=== PATIENT | female | born 1990 | race African-American/Black ===

== ENCOUNTER 2018-10-05 16:47 | Emergency (ER) | payer OTHER ==
[2018-10-05 16:52] VITALS: TEMP 99.1; BMI 25.1
--- NOTE | 2018-10-05 16:53 | PDOC ---
History of Present Illness - General Chief Complaint: Vomiting/Diarrhea Stated Complaint: PREG COMPLICATION Time Seen by Provider: 10/05/18 16:53 - History of Present Illness Initial Comments: 27 currently 5 months (LMP 05/23/18) with PMH of anemia presenting with multiple complaints. Patient called EMS because of subjective fever and headache. Per EMS, patient syncopized while they were on scene. Patient also reports a syncopal episode yesterday, but has never syncopized before then. She believes her hydration status has been poor. Patient reports vaginal spotting since last Saturday as well as "poquito" abdominal pain. Patient reports chest pain, shortness of breath, and cough productive of green/yellow sputum that started yesterday. She had taken tylenol at 9am and 2pm today. Patient recently travelled from [facility] to the [facility] (3hour 45 min flight on September 05). No hemoptysis, no recent surgical history, no recent immobilization, no history of DVT or PE. Patient also reports dysuria and chills. Of Note: Patient reported history of a blood clot in her lungs and stated she was treated at [facility] in April 2018. When asked what anticoagulant therapy she was on, she looked at me quizzically and denied being on blood thinner treatment. She currently takes aspirin. I called [facility]. [phone]: Spoke with one of the residents in the emergency department. This patient was seen at [facility] in April 2018. She did have an elevated D-Dimer ( 725) but no CT was performed during that visit. In her discharge instructions, patient was told that PE/DVT was extremely unlikely. Was given a diagnosis of acute influenza. This being the case, I have low suspicion that patient actually had a pulmonary embolus. PCP: Dr. Grover (affiliated with [facility]) Past History - Past Medical History Allergies/Adverse Reactions: Allergies Allergy/AdvReac Type Severity Reaction Status Date / Time No Known Allergies Allergy Verified 10/05/18 16:51 Home Medications: Ambulatory Orders NK [No Known Home Medication] 10/05/18 COPD: No - Suicide/Smoking/Psychosocial Hx Smoking History: Never smoked Have you smoked in the past 12 months: No Information on smoking cessation initiated: No Hx Alcohol Use: No Drug/Substance Use Hx: No Review of Systems - Review of Systems Comments:: Constitutional: +fever, +chills HEENT: no vision changes, no dysphagia Cardiovascular: +chest pain, no palpitations Respiratory: +cough, +shortness of breath Gastrointestinal: +abdominal pain, no constipation Genitourinary: +dysuria, no frequency Musculoskeletal: no myalgia, no arthralgia Skin: no rash, no itching Neurologic: +headache, no weakness *Physical Exam - Vital Signs Last Vital Signs Temp Pulse Resp BP Pulse Ox 99.1 F 89 18 107/60 97 10/05/18 16:49 10/05/18 16:49 10/05/18 16:49 10/05/18 16:49 10/05/18 16:49 - Physical Exam Comments: General: Awake, alert, and fully oriented, in no acute distress Head: No signs of trauma Eyes: EOMI, sclera anicteric ENT: Moist mucus membranes Neck: Normal ROM, supple Lungs: Lungs clear, Normal breath sounds Cardio: Regular rhythm, S1 and S2 present Abdomen: Gravid abdomen. Nontender. No guarding, no rebound. Extremities: Normal range of motion, Distal pulses present. No calf tenderness SKIN: Warm, Dry, normal turgor Neurologic: Cranial nerves II through XII grossly intact. Normal speech ED Treatment Course - LABORATORY CBC & Chemistry Diagram: 10/05/18 17:15 10/05/18 17:15 Medical Decision Making - Medical Decision Making 27 currently 5 months (LMP 05/23/18) with PMH of anemia presenting with multiple complaints. DDX including but not limited to vasovagal syncope, cardiogenic syncope, metabolic syncope, neurogenic syncope, postural syncope, intoxication, seizure, preeclampsia, threatened , ACS Labs, EKG 1L NS Ultrasound, and bilateral duplex EKG: rate 85, QTc 433, NSR 10/05/18 16:55 Patient reported history of a blood clot in her lungs and stated she was treated at [facility] in April 2018. Call to [facility]. : Spoke with one of the residents in the emergency department. This patient was seen at [facility] in April 2018. She did have an elevated D-Dimer (725) but no CT was performed during that visit. In her discharge instructions, patient was told that PE/DVT was extremely unlikely. Given a diagnosis of acute influenza. Lowered suspicion for PE given patient likely does not have history of blood clot. Preeclampsia less likely as patient is only 19 weeks. Though dates may be mis- reported. 10/05/18 17:54 CBC WBC 5.6 K/mm3 (4.0-10.0) 10/05/18 17:15 RBC 3.20 M/mm3 (3.60-5.2) L 10/05/18 17:15 Hgb 10.5 GM/dL (10.7-15.3) L 10/05/18 17:15 Hct 31.1 % (32.4-45.2) L 10/05/18 17:15 MCV 97.2 fl (80-96) H 10/05/18 17:15 MCH 32.9 pg (25.7-33.7) 10/05/18 17:15 MCHC 33.8 g/dl (32.0-36.0) 10/05/18 17:15 RDW 13.3 % (11.6-15.6) 10/05/18 17:15 Plt Count 247 K/MM3 (134-434) 10/05/18 17:15 MPV 8.4 fl (7.5-11.1) 10/05/18 17:15 Absolute Neuts (auto) 4.2 K/mm3 (1.5-8.0) 10/05/18 17:15 Neutrophils % 74.7 % (42.8-82.8) 10/05/18 17:15 Lymphocytes % 13.0 % (8-40) 10/05/18 17:15 Monocytes % 10.0 % (3.8-10.2) 10/05/18 17:15 Eosinophils % 1.7 % (0-4.5) 10/05/18 17:15 Basophils % 0.6 % (0-2.0) 10/05/18 17:15 Nucleated RBC % 0 % (0-0) 10/05/18 17:15 No leukocytosis Slight anemia D-dimer 1494 elevated 10/05/18 18:10 CMP Sodium 138 mmol/L (136-145) 10/05/18 17:15 Potassium 4.0 mmol/L (3.5-5.1) 10/05/18 17:15 Chloride 104 mmol/L (98-107) 10/05/18 17:15 Carbon Dioxide 26 mmol/L (21-32) 10/05/18 17:15 Anion Gap 9 MMOL/L (8-16) 10/05/18 17:15 BUN 6 mg/dL (7-18) L 10/05/18 17:15 Creatinine 0.6 mg/dL (0.55-1.3) 10/05/18 17:15 Est GFR (CKD-EPI)AfAm 142.76 10/05/18 17:15 Est GFR (CKD-EPI)NonAf 123.17 10/05/18 17:15 Random Glucose 92 mg/dL (74-106) 10/05/18 17:15 Calcium 8.8 mg/dL (8.5-10.1) 10/05/18 17:15 Magnesium 2.2 mg/dL (1.8-2.4) 10/05/18 17:15 Total Bilirubin 0.3 mg/dL (0.2-1) 10/05/18 17:15 AST 12 U/L (15-37) L 10/05/18 17:15 ALT 15 U/L (13-61) 10/05/18 17:15 Alkaline Phosphatase 53 U/L (45-117) 10/05/18 17:15 Troponin I < 0.02 ng/ml (0.00-0.05) 10/05/18 17:15 Total Protein 6.5 g/dl (6.4-8.2) 10/05/18 17:15 Albumin 3.2 g/dl (3.4-5.0) L 10/05/18 17:15 Beta HCG, Quant 82334.2 mIU/ml 10/05/18 17:15 Electrolytes unremarkable Tpn undetectable Low suspicion for ACS given normal EKG and nondetectable tpn 10/05/18 18:36 Patient signed out to Dr. Camejo Pending ultrasound reports 10/05/18 19:04 *DC/Admit/Observation/Transfer Diagnosis at time of Disposition: Syncope Qualifiers: Syncope type: unspecified Qualified Code(s): R55 - Syncope and collapse - Referrals - Patient Instructions Printed Discharge Instructions: DI for Syncope in Adults (Fainting) Additional Instructions: You came into the ED for fainting, chest pain, abdominal pain, and shortness of breath. Your labs and EKG were within normal limits. Make sure you keep yourself hydrated. Drink plenty of water. You can take tylenol for pain. Follow the instructions on the medication bottle. Follow-up with your primary care doctor/ bonding molder this week to discuss this ED visit and to further evaluate your symptoms. Call and make an appointment. Your workup is not complete until you do so. Immediate medical attention is required if: you pass out, have any chest pain, palpitations, shortness of breath, severe headaches, changes in vision, focal numbness or weakness, any severe abdominal pain, any black tarry stool, or any new or concerning symptoms. If you think you are having an emergency, call for emergency medical services or present to the emergency department right away. - Post Discharge Activity
[2018-10-05] MEDS ORDERED: SODIUM CHLORIDE 1,000 ML IV STA (17:14)
[2018-10-05 17:35] LABS: BASO % 0.6 % (0-2.0); EOS % 1.7 % (0-4.5); HEMATOCRIT 31.1 % (32.4-45.2); HEMOGLOBIN 10.5 GM/dL (10.7-15.3); MCH 32.9 pg (25.7-33.7); MCHC 33.8 g/dl (32.0-36.0); MEAN CELL VOLUME 97.2 fl (80-96); MEAN PLT VOLUME 8.4 fl (7.5-11.1); NEUT % 74.7 % (42.8-82.8); PLATELET COUNT 247 K/MM3 (134-434); RDW 13.3 % (11.6-15.6); WHITE BLOOD COUNT 5.6 K/mm3 (4.0-10.0)
[2018-10-05 17:53] LABS: INR 1.08 (0.83-1.09); PROTHROMBIN TIME (PATIENT) 12.7 SEC (9.7-13.0)
[2018-10-05 17:56] LABS: ACTIVATED PTT 29.4 SECONDS (25.2-36.5)
[2018-10-05 18:28] LABS: ALBUMIN 3.2 g/dl (3.4-5.0); ALK PHOS 53 U/L (45-117); ANION GAP 9 MMOL/L (8-16); BILIRUBIN,TOTAL 0.3 mg/dL (0.2-1); BLOOD UREA NITROGEN 6 mg/dL (7-18); CALCIUM 8.8 mg/dL (8.5-10.1); CHLORIDE 104 mmol/L (98-107); CO2 26 mmol/L (21-32); CREATININE 0.6 mg/dL (0.55-1.3); GLUCOSE,RANDOM 92 mg/dL (74-106); MAGNESIUM 2.2 mg/dL (1.8-2.4); SGOT/AST 12 U/L (15-37); SGPT/ALT 15 U/L (13-61); SODIUM 138 mmol/L (136-145); TOT PROT 6.5 g/dl (6.4-8.2)
--- NOTE | 2018-10-05 19:11 | PDOC ---
*Physical Exam - Vital Signs Last Vital Signs Temp Pulse Resp BP Pulse Ox 99.1 F 85 15 101/65 99 10/05/18 16:49 10/05/18 18:11 10/05/18 18:11 10/05/18 18:11 10/05/18 18:11 ED Treatment Course - LABORATORY CBC & Chemistry Diagram: 10/05/18 17:15 10/05/18 17:15 - ADDITIONAL ORDERS Additional order review: Laboratory Results 10/05/18 10/05/18 10/05/18 17:15 17:15 17:15 PT with INR 12.70 INR 1.08 PTT (Actin FS) 29.4 D-Dimer Sodium 138 Potassium 4.0 Chloride 104 Carbon Dioxide 26 Anion Gap 9 BUN 6 L Creatinine 0.6 Est GFR (CKD-EPI)AfAm 142.76 Est GFR (CKD-EPI)NonAf 123.17 Random Glucose 92 Calcium 8.8 Magnesium 2.2 Total Bilirubin 0.3 AST 12 L ALT 15 Alkaline Phosphatase 53 Troponin I < 0.02 Total Protein 6.5 Albumin 3.2 L Beta HCG, Quant 79658.2 Blood Type O POSITIVE Antibody Screen Negative 10/05/18 15:20 PT with INR INR PTT (Actin FS) D-Dimer 1494 H Sodium Potassium Chloride Carbon Dioxide Anion Gap BUN Creatinine Est GFR (CKD-EPI)AfAm Est GFR (CKD-EPI)NonAf Random Glucose Calcium Magnesium Total Bilirubin AST ALT Alkaline Phosphatase Troponin I Total Protein Albumin Beta HCG, Quant Blood Type Antibody Screen 10/05/18 17:15 RBC 3.20 L MCV 97.2 H MCHC 33.8 RDW 13.3 MPV 8.4 Neutrophils % 74.7 Lymphocytes % 13.0 Monocytes % 10.0 Eosinophils % 1.7 Basophils % 0.6 - Medications Given in the ED: ED Medications Discontinued Medications Generic Name Dose Route Start Last Admin Trade Name Freq PRN Reason Stop Dose Admin Sodium Chloride 1,000 mls @ 1,000 mls/hr 10/05/18 17:14 10/05/18 17:56 Normal Saline - IV 10/05/18 18:13 1,000 mls/hr ASDIR STA Administration Medical Decision Making - Medical Decision Making 10/05/18 19:11 Pt signed out to me by Dr. Briggs. See prior note. 27 year old female 5 months with PMH anemia presented to ED for multiple complaints, including subjective fever, headache, syncope, abdominal pain, vaginal spotting, chest pain, shortness of breath, productive yellow/ green cough. Pt reported feeling dehydrated. Initial Vital Signs Temp Pulse Resp BP Pulse Ox 99.1 F 89 18 107/60 97 10/05/18 16:49 10/05/18 16:49 10/05/18 16:49 10/05/18 16:49 10/05/18 16:49 Afebrile. No tachycardia. No tachypnea. Normal BP for . No hypoxia on room air. EKG performed at 1649: rate 85, regular rhythm, normal axis, normal intervals, no acute ST changes. CBC WBC 5.6 K/mm3 (4.0-10.0) 10/05/18 17:15 RBC 3.20 M/mm3 (3.60-5.2) L 10/05/18 17:15 Hgb 10.5 GM/dL (10.7-15.3) L 10/05/18 17:15 Hct 31.1 % (32.4-45.2) L 10/05/18 17:15 MCV 97.2 fl (80-96) H 10/05/18 17:15 MCH 32.9 pg (25.7-33.7) 10/05/18 17:15 MCHC 33.8 g/dl (32.0-36.0) 10/05/18 17:15 RDW 13.3 % (11.6-15.6) 10/05/18 17:15 Plt Count 247 K/MM3 (134-434) 10/05/18 17:15 MPV 8.4 fl (7.5-11.1) 10/05/18 17:15 Absolute Neuts (auto) 4.2 K/mm3 (1.5-8.0) 10/05/18 17:15 Neutrophils % 74.7 % (42.8-82.8) 10/05/18 17:15 Lymphocytes % 13.0 % (8-40) 10/05/18 17:15 Monocytes % 10.0 % (3.8-10.2) 10/05/18 17:15 Eosinophils % 1.7 % (0-4.5) 10/05/18 17:15 Basophils % 0.6 % (0-2.0) 10/05/18 17:15 Nucleated RBC % 0 % (0-0) 10/05/18 17:15 No leukocytosis. No anemia. CMP Sodium 138 mmol/L (136-145) 10/05/18 17:15 Potassium 4.0 mmol/L (3.5-5.1) 10/05/18 17:15 Chloride 104 mmol/L (98-107) 10/05/18 17:15 Carbon Dioxide 26 mmol/L (21-32) 10/05/18 17:15 Anion Gap 9 MMOL/L (8-16) 10/05/18 17:15 BUN 6 mg/dL (7-18) L 10/05/18 17:15 Creatinine 0.6 mg/dL (0.55-1.3) 10/05/18 17:15 Est GFR (CKD-EPI)AfAm 142.76 10/05/18 17:15 Est GFR (CKD-EPI)NonAf 123.17 10/05/18 17:15 Random Glucose 92 mg/dL (74-106) 10/05/18 17:15 Calcium 8.8 mg/dL (8.5-10.1) 10/05/18 17:15 Magnesium 2.2 mg/dL (1.8-2.4) 10/05/18 17:15 Total Bilirubin 0.3 mg/dL (0.2-1) 10/05/18 17:15 AST 12 U/L (15-37) L 10/05/18 17:15 ALT 15 U/L (13-61) 10/05/18 17:15 Alkaline Phosphatase 53 U/L (45-117) 10/05/18 17:15 Troponin I < 0.02 ng/ml (0.00-0.05) 10/05/18 17:15 Total Protein 6.5 g/dl (6.4-8.2) 10/05/18 17:15 Albumin 3.2 g/dl (3.4-5.0) L 10/05/18 17:15 Beta HCG, Quant 88067.2 mIU/ml 10/05/18 17:15 No electrolyte abnormalities. No GIANNA. No transaminitis. 10/05/18 19:17 Pending pelvic US report, UA. 10/05/18 20:11 Urine Test Results Urine Color Yellow 10/05/18 19:45 Urine Appearance Clear 10/05/18 19:45 Urine pH 7.5 (5.0-8.0) 10/05/18 19:45 Ur Specific Raysal 1.004 (1.010-1.035) L 10/05/18 19:45 Urine Protein Negative (NEGATIVE) 10/05/18 19:45 Urine Glucose (UA) Negative (NEGATIVE) 10/05/18 19:45 Urine Ketones Negative (NEGATIVE) 10/05/18 19:45 Urine Blood Negative (NEGATIVE) 10/05/18 19:45 Urine Nitrite Negative (NEGATIVE) 10/05/18 19:45 Urine Bilirubin Negative (NEGATIVE) 10/05/18 19:45 Ur Leukocyte Esterase Negative (NEGATIVE) 10/05/18 19:45 Negative for UTI. No proteinuria. 10/05/18 20:37 TVUS report: impression: 1. Single live intrauterine in cephalic presentation at 19 weeks 2 days ?1 week 2 days estimated gestational age. SANDY based on ultrasound February 27, 2019; consistent with clinical dating. 2. Posterior placenta, not low lying. 3. Estimated weight 280.87 g ?42.13 g. EFW-GP 41.9%. Pt discharged. *DC/Admit/Observation/Transfer Diagnosis at time of Disposition: Syncope Qualifiers: Syncope type: unspecified Qualified Code(s): R55 - Syncope and collapse - Discharge Dispostion Disposition: HOME Condition at time of disposition: Stable Decision to Admit order: No - Referrals - Patient Instructions Printed Discharge Instructions: DI for Syncope in Adults (Fainting) Additional Instructions: You came into the ED for fainting, chest pain, abdominal pain, and shortness of breath. Your labs and EKG were within normal limits. Make sure you keep yourself hydrated. Drink plenty of water. You can take tylenol for pain. Follow the instructions on the medication bottle. Follow-up with your primary care doctor/ light fixture servicer this week to discuss this ED visit and to further evaluate your symptoms. Call and make an appointment. Your workup is not complete until you do so. Your ultrasound was normal. Immediate medical attention is required if: you pass out, have any chest pain, palpitations, shortness of breath, severe headaches, changes in vision, focal numbness or weakness, any severe abdominal pain, any black tarry stool, or any new or concerning symptoms. If you think you are having an emergency, call for emergency medical services or present to the emergency department right away. ----- Entr en el servicio de urgencias por desmayos, dolor de pecho, dolor abdominal y dificultad para respirar. Sonja laboratorios y EKG estaban dentro de los lmites normales. Asegrate de mantenerte hidratado. Beber abundante agua. Puedes angel tylenol para el dolor. Siga las instrucciones en el envase del medicamento. Christine un seguimiento con lawrence mdico de cabecera / obstetra esta semana para hablar sobre esta visita al ED y evaluar sonja sntomas. Llame y christine garcia khang. Lawrence preparacin no est completa hasta que lo christine. Lawrence ultrasonido fue normal. Se requiere atencin mdica inmediata si: se desmaya, tiene dolor en el pecho, palpitaciones, dificultad para respirar, uzma de jolene severos, cambios en la visin, entumecimiento o debilidad focal, dolor abdominal intenso, heces de color jahaira o cualquier sntoma nuevo o relacionado. . Si terry que tiene garcia emergencia, llame para solicitar servicios mdicos de emergencia o presente al departamento de emergencias de inmediato. - Post Discharge Activity Forms/Work/School Notes: Back to Work
[2018-10-05] MEDS ORDERED: ACETAMINOPHEN 325 MG TABLET (FP) PO ONE (19:48)
[2018-10-05 19:57] LABS: PH,URINE 7.5 (5.0-8.0); URINE APPEARANCE CLEAR; URINE BILIRUBIN NEGATIVE (NEGATIVE); URINE COLOR YELLOW; URINE GLUCOSE (UA) NEGATIVE (NEGATIVE); URINE KETONE NEGATIVE (NEGATIVE); URINE LEUK ESTERASE NEGATIVE (NEGATIVE); URINE NITRITE NEGATIVE (NEGATIVE); URINE PROTEIN NEGATIVE (NEGATIVE); URINE UROBILINOGEN 0.2 mg/dL (0.2-1.0)
[2018-10-05] MEDS ORDERED: ACETAMINOPHEN 325 MG TABLET (FP) ONE (19:57)
--- NOTE | 2018-10-05 21:01 | PDOC ---
Documentation entered by January Jon SCRIBE, acting as scribe for Liberty Aponte MD. Liberty Apnote MD: This documentation has been prepared by the scribe, January Jon SCRIBE, under my direction and personally reviewed by me in its entirety. I confirm that the documentation accurately reflects all work, treatment, procedures, and medical decision making performed by me. Attending Attestation - Resident Resident Name: Linda Briggs - ED Attending Attestation I have performed the following: I have examined & evaluated the patient, The case was reviewed & discussed with the resident, I agree w/resident's findings & plan, Exceptions are as noted - HPI HPI: 10/05/18 17:49 The patient is a 27-year-old female , currently, 19 weeks presents to the emergency department via EMS s/p a syncopal episode and multiple complains. The patients with 1-day history of headache, chest pain, shortness of breath, nausea, vomiting, dysuria, and hematochezia, denies hemoptysis. The patient reports she felt subjective warm and called EMS. Per EMS, the patient had a witnessed syncope at home. The patient states she recently returned from a trip to [place] on the . LMP: May 23. Allergies: NKDA - Physicial Exam PE: 10/05/18 18:04 HEENT: Normocephalic, atraumatic. PERRLA, EOMI. No conjunctival pallor. Sclera are non-icteric. Moist mucous membranes. Oropharynx is clear. NECK: Supple. Full ROM. No JVD. Carotid pulses 2+ and symmetric, without bruits. CARDIOVASCULAR: Normotensive, Regular rate and rhythm. No murmurs, rubs , or gallops. Distal pulses are 2+ and symmetric. PULMONARY: No evidence of respiratory distress. Lungs clear to auscultation bilaterally. No wheezing, rales or rhonchi. ABDOMINAL: +protuberant abdomen. Soft. Non-tender. No rebound or guarding. No organomegaly. Normoactive bowel sounds. MUSCULOSKELETAL: Normal range of motion at all joints. No bony deformities or tenderness. No CVA tenderness. EXTREMITIES: No cyanosis. No clubbing. No edema. No calf tenderness. SKIN: Warm and dry. Normal capillary refill. No rashes. No jaundice. NEUROLOGICAL: Alert, awake, appropriate. Cranial nerves 2-12 intact. Gait is normal without ataxia. PSYCHIATRIC: Cooperative. Good eye contact. Appropriate mood and affect. - Medical Decision Making 10/05/18 17:32 this 27 yo female was BIBA after a syncope episode. She reports being 19 weeks and is followed by the environmental epidemiologist clinic at [facility] 101/65 p=84 100 on room ait -this is her first -she reports having a PMH significant for clot in the past and she states that is way she is on aspirin she has c/o multiple complaints including chest discomfort,[place],vag bleeding, cough w phlegm 10/05/18 19:04 Dr Mckeon So called [facility] to verify pt's report of a PE in Apr 2018 at their institution, however the reocrds from [facility] do not show a diagnosis of PE but influenza. She was discharged from [facility] w/o any anti coagulation. 10/05/18 20:58 pelvic US 19 weeks 2 days SL IUP labs reviewed ekg is NSR @ 85 bpm she received IVF pt to follow up with her od/rotary cutter feeder
[2018-10-05 21:12] VITALS: BP 100/61; PULSE 88
--- NOTE | 2018-10-06 11:18 | EKG ---
Test Reason : Blood Pressure : / mmHG Vent. Rate : 085 BPM Atrial Rate : 085 BPM P-R Int : 112 ms QRS Dur : 082 ms QT Int : 364 ms P-R-T Axes : 033 056 040 degrees QTc Int : 433 ms NORMAL SINUS RHYTHM NORMAL ECG WHEN COMPARED WITH ECG OF 05-OCT-2018 16:48, NO SIGNIFICANT CHANGE WAS FOUND Confirmed by ABISAI HILARIO MD ([id number]) on 10/06/2018 11:17:57 AM Referred By: Confirmed By:ABISAI HILARIO MD
== END 2018-10-05 21:14 | disposition home or self-care (01) ==
LOC: JER 16:47
PROC: 3E0337Z Introduction of Electrolytic and Water Balance Substance into Peripheral Vein, Percutaneous Approach (ICD-10-PCS; principal; 2018-10-05)
DX: O26.892 Other specified pregnancy related conditions, second trimester (principal); R55 Syncope and collapse; Z3A.19 19 weeks gestation of pregnancy
CPT/HCPCS: 36415; 76801-TC; 80053; 81003; 83735; 84484; 84702; 85025; 85379; 85610; 85730; 86850; 86900; 86901; 87077; 87086; 93005; 93010; 93970-TC; 96360; 99284-25; J7030

== ENCOUNTER 2019-02-20 01:30 | Inpatient (IN) | payer OTHER ==
[2019-02-20] MEDS: DEXTROSE 5%-LACTATED RINGERS 1,000 ML IV SCH (02:00)
[2019-02-20 02:20] LABS: BASO % 0.4 % (0-2.0); EOS % 0.7 % (0-4.5); HEMATOCRIT 33.5 % (32.4-45.2); HEMOGLOBIN 11.2 GM/dL (10.7-15.3); LYMPH % 22.6 % (8-40); MCH 32.2 pg (25.7-33.7); MCHC 33.4 g/dl (32.0-36.0); MEAN CELL VOLUME 96.5 fl (80-96); MEAN PLT VOLUME 9.4 fl (7.5-11.1); MONO % 6.5 % (3.8-10.2); NEUT % 69.8 % (42.8-82.8); PLATELET COUNT 234 K/MM3 (134-434); RBC 3.48 M/mm3 (3.60-5.2); RDW 13.8 % (11.6-15.6); WHITE BLOOD COUNT 7.9 K/mm3 (4.0-10.0)
[2019-02-20 02:33] LABS: INR 0.99 (0.83-1.09); PROTHROMBIN TIME (PATIENT) 11.7 SEC (9.7-13.0)
[2019-02-20 02:35] LABS: ACTIVATED PTT 28.5 SECONDS (25.2-36.5)
[2019-02-20 02:52] LABS: BLOOD UREA NITROGEN 7.7 mg/dL (7-18); CALCIUM 8.4 mg/dL (8.5-10.1); CREATININE 0.7 mg/dL (0.55-1.3)
[2019-02-20 03:13] VITALS: BMI 26.8
[2019-02-20] MEDS ORDERED: DINOPROSTONE 10 MG VAGINAL SUPPOSITORY VG ONE (05:03)
--- NOTE | 2019-02-20 05:13 | HP ---
Past Medical History - Admission Chief Complaint: Rupture of membrane History of Present Illness: 28 yo @ 39 weeks gestation, EDC 02/27/19, admitted for rupture of membrane. Upon admission she was 1-2cm dilated with gross pooling. History Source: Patient Limitations to Obtaining History: No Limitations - Past Medical History ...: 1 ...Para: 0 ...EDC by Sono: 02/27/19 - Past Surgical History Past Surgical History: Yes: None Hx Myomectomy: No Hx Transabdominal Cerclage: No - Smoking History Smoking history: Never smoked Have you smoked in the past 12 months: No - Alcohol/Substance Use Hx Alcohol Use: No - Social History History of Recent Travel: No Home Medications - Allergies Allergies/Adverse Reactions: Allergies Allergy/AdvReac Type Severity Reaction Status Date / Time No Known Allergies Allergy Verified 01/19/19 16:18 - Home Medications Home Medications: Ambulatory Orders Prenat 115/Iron Fum/Folic/Dss [ 19 Tablet] 1 tab PO DAILY 01/19/19 Iron 1 tab PO DAILY 02/06/19 Family Medical History Family History: Unremarkable Review of Systems - Review of Systems Constitutional: reports: No Symptoms Eyes: reports: No Symptoms HENT: reports: No Symptoms Neck: reports: No Symptoms Cardiovascular: reports: No Symptoms Respiratory: reports: No Symptoms Gastrointestinal: reports: No Symptoms Genitourinary: reports: Other (Leakage of fluid) Breasts: reports: No Symptoms Reported Musculoskeletal: reports: No Symptoms Integumentary: reports: No Symptoms Neurological: reports: No Symptoms Endocrine: reports: No Symptoms Hematology/Lymphatic: reports: No Symptoms Psychiatric: reports: No Symptoms Pain Intensity: 2 Physical Exam - Maternity Vital Signs: Vital Signs Temperature 98.1 F 02/20/19 04:00 Pulse Rate 69 02/20/19 04:00 Respiratory Rate 20 02/20/19 04:00 Blood Pressure 112/70 02/20/19 04:00 O2 Sat by Pulse Oximetry (%) Constitutional: No: No Distress Eyes: Yes: Conjunctiva Clear HENT: Yes: Atraumatic Neck: Yes: Supple Cardiovascular: Yes: Regular Rate and Rhythm Lungs: Clear to auscultation Breast(s): Yes: WNL - Abdominal Exam/OB Number of Fetuses: Single Presentation: Vertex Contractions: Yes Regularity: Regular - Vaginal Exam/OB Dilatation (cm): 2 Effacement (%): 70 Amniotic Membrane Status: Ruptured Nitrazine Test: Positive Amniotic Fluid: Yes: Clear Presentation: Vertex/Position Station: -3 - Physical Exam Musculoskeletal: Yes: WNL Extremities: Yes: WNL ...Motor Strength: WNL Psychiatric: Yes: Alert, Oriented - Labs Lab Results: CBC, BMP 02/20/19 02:00 02/20/19 02:00 Problem List - Problems (1) 39 weeks gestation of Problems reviewed: Yes Code(s): Z3A.39 - 39 WEEKS GESTATION OF (2) Rupture of membranes with clear amniotic fluid Problems reviewed: Yes Code(s): BLL1523 - Assessment/Plan 39 weeks gestation Spontaneous rupture of membrane Admit to L&D Cervidil induction Analgesia as needed Re-evaluate in 12 hours or before if indicated
[2019-02-20] MEDS ORDERED: AMPICILLIN - 2 GM in SODIUM CHLORIDE 100 ML IVPB ONE (05:32)
[2019-02-20] MEDS ORDERED: AMPICILLIN SODIUM 2 GM VIAL ONE (05:50)
[2019-02-20] MEDS ORDERED: FENTANYL/BUPIVACAINE/NS/PF - PCEA - 50 ML DISP.SYRIN EP ONE (07:31)
[2019-02-20] MEDS ORDERED: AMPICILLIN SODIUM 1 GM VIAL ONE (07:31)
[2019-02-20] MEDS ORDERED: ELECTROLYTE-148 SOLN 1,000 ML IV SCH (07:45)
[2019-02-20] MEDS ORDERED: NALOXONE HCL 0.4 MG/ML VIAL IVPUSH PRN (08:46)
[2019-02-20] MEDS ORDERED: FENTANYL/BUPIVACAINE/NS/PF - PCEA - 50 ML DISP.SYRIN EP SCH (09:00)
[2019-02-20] MEDS ORDERED: AMPICILLIN - 1 GM in SODIUM CHLORIDE 100 ML IVPB SCH (09:33)
[2019-02-20] MEDS ORDERED: OXYTOCIN 20 UNITS in 0.9% NS 20 UNIT/1,000 ML INFUS.BAG IV ONE ×2 (09:43→12:18)
[2019-02-20] MEDS ORDERED: LIDOCAINE HCL 1% PRESERVATIVE FREE - 30ML VIAL ONE (09:43)
[2019-02-20] MEDS ORDERED: OXYTOCIN 30 UNITS in 0.9% NS 30 UNIT/500 ML INFUS.BAG IVPB ONE (09:51)
[2019-02-20] MEDS ORDERED: LIDO 2%/EPI 1:200000 PRESRVFRE (20 ML SDVIAL) ONE (11:20)
[2019-02-20] MEDS ORDERED: KETAMINE HCL 500 MG/10 ML VIAL ONE (11:37)
[2019-02-20] MEDS ORDERED: MIDAZOLAM HCL 2 MG/2 ML SINGLE DOSE VIAL ONE (11:49)
[2019-02-20] MEDS: OXYTOCIN 20 UNITS in 0.9% NS 20 UNIT/1,000 ML INFUS.BAG IV SCH ×2 (12:30→23:09)
[2019-02-20] MEDS ORDERED: METHYLERGONOVINE MALEATE 0.2 MG/1 ML AMP IM PRN (12:36)
[2019-02-20] MEDS ORDERED: IBUPROFEN 800 MG/8 ML IJ IVPB PRN (12:36)
--- NOTE | 2019-02-20 12:45 | SURG ---
Surgery Automotive Machinist Note Automotive Machinist: Radha Yousif PA-C Date of Service: 02/20/19 Diagnosis: 39 weeks with failure to descend/progress Procedure: Primary section I was present for the entirety of the operative procedure. For further detail, please refer to operative report. <Radha Yousif - Last Filed: 02/20/19 12:47> I was present for the entirety of the operative procedure. For further detail, please refer to operative report. <Dolores Bo - Last Filed: 02/20/19 13:07> Visit type - Case Type Case Type: ED Admission - Emergency Emergency Visit: Yes ED Registration Date: 02/20/19 (patient presented to Ruptured membranes and was admitted directly to L&D) Care time: The patient presented to the Emergency Department on the above date and was hospitalized for further evaluation of their emergent condition. - New patient This patient is new to me today: Yes Date on this admission: 02/20/19 <Radha Yousif - Last Filed: 02/20/19 12:47>
[2019-02-20] MEDS ORDERED: ONDANSETRON 4 MG/2 ML VIAL IVPUSH PRN (12:47)
[2019-02-20] MEDS ORDERED: IBUPROFEN 600 MG TABLET (FP) PO PRN (12:47)
--- NOTE | 2019-02-20 13:06 | PN ---
Progress Note (short form) - Note Progress Note: Patient became fully dilated at 9:57 am after epidural anesthesia. She continues to c/o contractions pain. Patient then started to push as directed. After one hour of pushing, head remain at zero station. Patient became exhausted. Decision made for vacuum assisted delivery. Patient signed consent for vacuum assisted delivery. A kiwi vacuum applied to head. After 5 pulls with suprapubic pressure, attempt at delivery was still unsuccessful. Decision made to take patient to the OR at 11:15 am. Consent for primary signed. Patient was prepped and shaved. Anesthesia called. Problem List - Problems (1) 39 weeks gestation of Code(s): Z3A.39 - 39 WEEKS GESTATION OF (2) Rupture of membranes with clear amniotic fluid Code(s): WYI1247 -
--- NOTE | 2019-02-20 13:12 | OP ---
Operative Note - Note: Operative Date: 02/20/19 Pre-Operative Diagnosis: 39 weeks gestation / Arrest of descent Operation: Primary Low Transverse Findings: Positive meconium Baby in cephallic position with decrease tone. Post-Operative Diagnosis: Same as Pre-op Surgeon: Dolores Bo Furnace Utility Operator: Radha Yousif Anesthesia: Epidural Specimens Removed: Placenta Estimated Blood Loss (mls): 600 Operative Report Dictated: Yes
[2019-02-20] MEDS: FERROUS SO4 325 MG TABLET (FP) PO SCH (21:59)
[2019-02-21] MEDS: DEXTROSE 5%-LACTATED RINGERS 1,000 ML IV SCH ×3 (02:14→06:26)
[2019-02-21] MEDS: IBUPROFEN 600 MG TABLET (FP) PO PRN ×2 (06:14→19:53)
[2019-02-21] MEDS: ACETAMINOPHEN 325 MG TABLET (FP) PO PRN ×2 (06:14→13:49)
[2019-02-21] MEDS: OXYTOCIN 20 UNITS in 0.9% NS 20 UNIT/1,000 ML INFUS.BAG IV SCH (06:15)
[2019-02-21 07:34] LABS: BASO % 0.3 % (0-2.0); EOS % 0.1 % (0-4.5); HEMATOCRIT 27.6 % (32.4-45.2); HEMOGLOBIN 9.6 GM/dL (10.7-15.3); LYMPH % 10.9 % (8-40); MCH 33.5 pg (25.7-33.7); MCHC 34.6 g/dl (32.0-36.0); MEAN CELL VOLUME 96.8 fl (80-96); MEAN PLT VOLUME 9.3 fl (7.5-11.1); MONO % 5.6 % (3.8-10.2); NEUT % 83.1 % (42.8-82.8); PLATELET COUNT 159 K/MM3 (134-434); RBC 2.85 M/mm3 (3.60-5.2); RDW 13.9 % (11.6-15.6); WHITE BLOOD COUNT 9.6 K/mm3 (4.0-10.0)
--- NOTE | 2019-02-21 08:31 | PN ---
Progress Note (short form) - Note Progress Note: Anesthesia Post op Pt seen and examined S:Alert and awake comfortable O: Vital Signs Temperature 98.9 F 02/21/19 06:00 Pulse Rate 87 02/21/19 06:00 Respiratory Rate 20 02/21/19 07:00 Blood Pressure 100/61 02/21/19 06:00 O2 Sat by Pulse Oximetry (%) 96 02/20/19 14:45 CBC, BMP 02/20/19 02:00 A/P: Current Active Problems 39 weeks gestation of (Acute) Rupture of membranes with clear amniotic fluid (Acute) s/p c section Doing well post op Continue current care Landon Hannah M.D.
--- NOTE | 2019-02-21 09:26 | PN ---
Post Progress Note - Subjective Subjective: Pt seen/evaluated and doing well. OOB to chair upon my arrival. C/O incisional pain but is improved with meds. Tolerating clears, no n/v. No dizziness. Bleeding moderate and decreasing. No void yet. Type of Delivery: Primary C/S Vital Signs: Vital Signs Temperature 98.9 F 02/21/19 06:00 Pulse Rate 87 02/21/19 06:00 Respiratory Rate 20 02/21/19 07:00 Blood Pressure 100/61 02/21/19 06:00 O2 Sat by Pulse Oximetry (%) 96 02/20/19 14:45 Uterus: Yes: Fundus Firm Incision: Yes: Dressing dry and intact Abdomen/GI: Yes: Abdomen soft Lochia, amount: Small Extremities: Yes: Calves non-tender Perineum: Yes: Intact Activity: Ambulating - Labs Labs: CBC WBC 9.6 K/mm3 (4.0-10.0) 02/21/19 06:26 RBC 2.85 M/mm3 (3.60-5.2) L 02/21/19 06:26 Hgb 9.6 GM/dL (10.7-15.3) L 02/21/19 06:26 Hct 27.6 % (32.4-45.2) L D 02/21/19 06:26 MCV 96.8 fl (80-96) H 02/21/19 06:26 MCH 33.5 pg (25.7-33.7) 02/21/19 06:26 MCHC 34.6 g/dl (32.0-36.0) 02/21/19 06:26 RDW 13.9 % (11.6-15.6) 02/21/19 06:26 Plt Count 159 K/MM3 (134-434) D 02/21/19 06:26 MPV 9.3 fl (7.5-11.1) 02/21/19 06:26 Absolute Neuts (auto) 8.0 K/mm3 (1.5-8.0) 02/21/19 06:26 Neutrophils % 83.1 % (42.8-82.8) H 02/21/19 06:26 Lymphocytes % 10.9 % (8-40) D 02/21/19 06:26 Monocytes % 5.6 % (3.8-10.2) 02/21/19 06:26 Eosinophils % 0.1 % (0-4.5) D 02/21/19 06:26 Basophils % 0.3 % (0-2.0) 02/21/19 06:26 Nucleated RBC % 0 % (0-0) 02/21/19 06:26 Problem List - Problems (1) delivery delivered Code(s): O82 - ENCOUNTER FOR DELIVERY WITHOUT INDICATION (2) Anemia Code(s): D64.9 - ANEMIA, UNSPECIFIED Assessment/Plan POD#1 s/p delivery AFVSS Anemic - continue PNVs, for PO iron advance diet as tolerated OOB routine care
[2019-02-21] MEDS: PRENATAL VITAMINS W/ FOLIC ACID TABLET (FP) PO SCH (10:07)
[2019-02-21] MEDS: FERROUS SO4 325 MG TABLET (FP) PO SCH ×2 (10:07→22:12)
[2019-02-21] MEDS ORDERED: BISACODYL 10 MG SUPP.RECT RC PRN (12:36)
[2019-02-21] MEDS: oxyCODONE HCL 5 MG TABLET PO PRN ×2 (13:49→19:52)
[2019-02-21] MEDS: SIMETHICONE 80 MG TAB.CHEW (FP) PO PRN (19:52)
[2019-02-22] MEDS: SIMETHICONE 80 MG TAB.CHEW (FP) PO PRN ×3 (04:36→21:21)
[2019-02-22] MEDS: IBUPROFEN 600 MG TABLET (FP) PO PRN ×3 (04:36→21:21)
[2019-02-22] MEDS: oxyCODONE HCL 5 MG TABLET PO PRN ×2 (04:36→11:46)
--- NOTE | 2019-02-22 07:20 | PN ---
Post Progress Note - Subjective Subjective: Pt seen/evaluated and doing well. Pain controlled with meds. Bleeding minimal. Tolerating diet, OOB voiding and ambulating Type of Delivery: Primary C/S Vital Signs: Vital Signs Temperature 98.5 F 02/21/19 21:01 Pulse Rate 98 H 02/21/19 21:01 Respiratory Rate 18 02/21/19 21:01 Blood Pressure 92/60 02/21/19 21:01 O2 Sat by Pulse Oximetry (%) 96 02/20/19 14:45 Uterus: Yes: Fundus Firm Incision: Yes: Sutures intact Abdomen/GI: Yes: Abdomen soft Lochia: Yes: Rubra Lochia, amount: Small Extremities: Yes: Calves non-tender Perineum: Yes: Intact Activity: Ambulating - Labs Labs: CBC WBC 9.6 K/mm3 (4.0-10.0) 02/21/19 06:26 RBC 2.85 M/mm3 (3.60-5.2) L 02/21/19 06:26 Hgb 9.6 GM/dL (10.7-15.3) L 02/21/19 06:26 Hct 27.6 % (32.4-45.2) L D 02/21/19 06:26 MCV 96.8 fl (80-96) H 02/21/19 06:26 MCH 33.5 pg (25.7-33.7) 02/21/19 06:26 MCHC 34.6 g/dl (32.0-36.0) 02/21/19 06:26 RDW 13.9 % (11.6-15.6) 02/21/19 06:26 Plt Count 159 K/MM3 (134-434) D 02/21/19 06:26 MPV 9.3 fl (7.5-11.1) 02/21/19 06:26 Absolute Neuts (auto) 8.0 K/mm3 (1.5-8.0) 02/21/19 06:26 Neutrophils % 83.1 % (42.8-82.8) H 02/21/19 06:26 Lymphocytes % 10.9 % (8-40) D 02/21/19 06:26 Monocytes % 5.6 % (3.8-10.2) 02/21/19 06:26 Eosinophils % 0.1 % (0-4.5) D 02/21/19 06:26 Basophils % 0.3 % (0-2.0) 02/21/19 06:26 Nucleated RBC % 0 % (0-0) 02/21/19 06:26 Problem List - Problems (1) delivery delivered Code(s): O82 - ENCOUNTER FOR DELIVERY WITHOUT INDICATION (2) Anemia Code(s): D64.9 - ANEMIA, UNSPECIFIED Assessment/Plan POD#2 s/p delivery AFVSS Anemia - continue PNVs, for PO iron advance diet as tolerated OOB routine care
[2019-02-22] MEDS: PRENATAL VITAMINS W/ FOLIC ACID TABLET (FP) PO SCH (09:08)
[2019-02-22] MEDS: FERROUS SO4 325 MG TABLET (FP) PO SCH ×2 (09:08→21:21)
[2019-02-22] MEDS ORDERED: FLU VACC QS2019-20(6MOS UP)/PF 60 MCG/0.5 ML SYRINGE IM ONE (10:00)
[2019-02-22] MEDS ORDERED: FLU VACCINE QUAD 60 MCG/0.5 ML (MDV 19-20) IM ONE (10:00)
[2019-02-22] MEDS ORDERED: DIPHTH,PERTUSS(ACELL),TET 0.5 ML DISP.SYRIN IM ONE (10:00)
[2019-02-22] MEDS: ACETAMINOPHEN 325 MG TABLET (FP) PO PRN ×2 (13:33→21:22)
[2019-02-22] MEDS ORDERED: CEFAZOLIN 1 GM in DEXTROSE 5%-WATER - 50 ML IVPB ONE (14:52)
[2019-02-22] MEDS ORDERED: CEFAZOLIN 1 GM/D5W 1 GM/50 ML BAG IVPB ONE (15:30)
[2019-02-23] MEDS: oxyCODONE HCL 5 MG TABLET PO PRN ×2 (00:47→06:00)
[2019-02-23] MEDS: SIMETHICONE 80 MG TAB.CHEW (FP) PO PRN ×4 (00:47→21:08)
[2019-02-23] MEDS: IBUPROFEN 600 MG TABLET (FP) PO PRN ×4 (00:49→21:08)
--- NOTE | 2019-02-23 05:06 | PN ---
Post Progress Note - Subjective Subjective: Pt with Tmax 101.5 yesterday afternoon. Pt asymtpomatic currently, feeling well. No acute events overnight. Tolerating diet, ambulating, voiding. Type of Delivery: Primary C/S Vital Signs: Vital Signs Temperature 99.2 F 02/23/19 01:45 Pulse Rate 95 H 02/22/19 21:31 Respiratory Rate 18 02/22/19 21:31 Blood Pressure 121/66 02/22/19 21:31 O2 Sat by Pulse Oximetry (%) 96 02/20/19 14:45 Uterus: Yes: Fundus Firm Abdomen/GI: Yes: Abdomen soft. No: Abdominal Distention, Tender Lochia: Yes: Rubra Lochia, amount: Small Perineum: Yes: Intact Activity: Ambulating - Labs Labs: CBC WBC 9.6 K/mm3 (4.0-10.0) 02/21/19 06:26 RBC 2.85 M/mm3 (3.60-5.2) L 02/21/19 06:26 Hgb 9.6 GM/dL (10.7-15.3) L 02/21/19 06:26 Hct 27.6 % (32.4-45.2) L D 02/21/19 06:26 MCV 96.8 fl (80-96) H 02/21/19 06:26 MCH 33.5 pg (25.7-33.7) 02/21/19 06:26 MCHC 34.6 g/dl (32.0-36.0) 02/21/19 06:26 RDW 13.9 % (11.6-15.6) 02/21/19 06:26 Plt Count 159 K/MM3 (134-434) D 02/21/19 06:26 MPV 9.3 fl (7.5-11.1) 02/21/19 06:26 Absolute Neuts (auto) 8.0 K/mm3 (1.5-8.0) 02/21/19 06:26 Neutrophils % 83.1 % (42.8-82.8) H 02/21/19 06:26 Lymphocytes % 10.9 % (8-40) D 02/21/19 06:26 Monocytes % 5.6 % (3.8-10.2) 02/21/19 06:26 Eosinophils % 0.1 % (0-4.5) D 02/21/19 06:26 Basophils % 0.3 % (0-2.0) 02/21/19 06:26 Nucleated RBC % 0 % (0-0) 02/21/19 06:26 Problem List - Problems (1) delivery delivered Code(s): O82 - ENCOUNTER FOR DELIVERY WITHOUT INDICATION (2) Anemia Code(s): D64.9 - ANEMIA, UNSPECIFIED (3) Fever Code(s): R50.9 - FEVER, UNSPECIFIED Assessment/Plan 28 y/o POD#3 s/p primary c section Tmax 101.5 yesterday, on IV antibiotics, afebrile now regular diet PO pain meds continue present management
[2019-02-23 07:31] LABS: BASO % 0.6 % (0-2.0); EOS % 0.7 % (0-4.5); HEMATOCRIT 24.4 % (32.4-45.2); HEMOGLOBIN 8.4 GM/dL (10.7-15.3); LYMPH % 11.8 % (8-40); MCH 33.6 pg (25.7-33.7); MCHC 34.6 g/dl (32.0-36.0); MEAN CELL VOLUME 97.3 fl (80-96); MEAN PLT VOLUME 8.3 fl (7.5-11.1); MONO % 7.3 % (3.8-10.2); NEUT % 79.6 % (42.8-82.8); PLATELET COUNT 175 K/MM3 (134-434); RDW 13.9 % (11.6-15.6); WHITE BLOOD COUNT 5.7 K/mm3 (4.0-10.0)
[2019-02-23] MEDS: PRENATAL VITAMINS W/ FOLIC ACID TABLET (FP) PO SCH (09:10)
[2019-02-23] MEDS: FERROUS SO4 325 MG TABLET (FP) PO SCH ×2 (09:11→21:08)
[2019-02-23] MEDS: ACETAMINOPHEN 325 MG TABLET (FP) PO PRN ×2 (13:03→21:08)
[2019-02-23] MEDS: OXYTOCIN 20 UNITS in 0.9% NS 20 UNIT/1,000 ML INFUS.BAG IV SCH (19:28)
[2019-02-23] MEDS: DEXTROSE 5%-LACTATED RINGERS 1,000 ML IV SCH ×2 (19:28)
[2019-02-24] MEDS: ACETAMINOPHEN 325 MG TABLET (FP) PO PRN ×2 (02:54→07:41)
[2019-02-24] MEDS: SIMETHICONE 80 MG TAB.CHEW (FP) PO PRN ×2 (02:54→07:42)
[2019-02-24] MEDS: IBUPROFEN 600 MG TABLET (FP) PO PRN ×2 (02:54→07:43)
[2019-02-24] MEDS: PRENATAL VITAMINS W/ FOLIC ACID TABLET (FP) PO SCH (10:01)
[2019-02-24] MEDS: FERROUS SO4 325 MG TABLET (FP) PO SCH (10:01)
--- NOTE | 2019-02-24 10:29 | DS ---
Physical Exam-ENVIRONMENTAL TEST TECHNICIAN Vital Signs: Vital Signs Temperature 98.2 F 02/23/19 21:57 Pulse Rate 88 02/23/19 21:57 Respiratory Rate 18 02/23/19 21:57 Blood Pressure 117/80 02/23/19 21:57 O2 Sat by Pulse Oximetry (%) 96 02/20/19 14:45 Constitutional: Yes: Well Nourished Eyes: Yes: Conjunctiva Clear HENT: Yes: Atraumatic Neck: Yes: Supple Cardiovascular: Yes: Regular Rate and Rhythm Respiratory: Yes: Regular Gastrointestinal: Yes: Normal Bowel Sounds External Genitalia: Yes: Normal Vaginal Exam: Yes: Normal Cervix: Yes: Normal Uterus: Yes: Normal Wound/Incision: Yes: Well Approximated Neurological: Yes: Alert, Oriented ...Motor Strength: WNL Psychiatric: Yes: Alert, Oriented Labs: CBC, BMP 02/23/19 07:05 02/20/19 02:00 Delivery - Delivery Type of Anesthesia: Epidural Episiotomy/Laceration: Midline EBL (cc): 600 Delivery, Single - Stages of Labor Date 1st Stage Initiatied: 02/20/19 Time 1st Stage Initiated: 01:00 Date 2nd Stage Initiated: 02/20/19 Time 2nd Stage Initiated: 10:05 Date of Delivery: 02/20/19 Time of Delivery: 11:44 Time Placenta Delivered: 11:45 - Condition of Wiper Blender/Instructional Technology Coach Present: Yes Name: Jamie Guerra Gender: Female Weight: 6 lb 2 oz Position: Right, OT Total Hours ROM (Hrs/Mins): 11H15M - 1 Minute Total Score: 2 5 Minutes Total Score: 7 - [place] Feeding Plan Initial Plan: Elected not to breastfeed exclusively throughout hospitalization Discharge Summary Reason For Visit: LABOR Current Active Problems 39 weeks gestation of (Acute) Anemia (Acute) delivery delivered (Acute) Fever (Acute) Rupture of membranes with clear amniotic fluid (Acute) Procedures: Principal: Primart Low Transverse Hospital Course: Patient admitted vaginal delivery. Due to unsuccessful pushing effort, a vacuum was applied unsuccessfully. Patient was then taken to OR for primary . Health Concerns: None Plan of Treatment: Routine postop care Condition: Good - Instructions Referrals: Dolores Bo MD [Staff Physician] - Disposition: HOME - Home Medications Comprehensive Discharge Medication List: Ambulatory Orders Prenat 115/Iron Fum/Folic/Dss [ 19 Tablet] 1 tab PO DAILY 01/19/19 Iron 1 tab PO DAILY 02/06/19
--- NOTE | 2019-02-24 12:01 | OP ---
DATE OF OPERATION: 02/20/2019 PREOPERATIVE DIAGNOSIS: 39 weeks' gestation with arrest of descent. POSTOPERATIVE DIAGNOSIS: 39 weeks' gestation with arrest of descent. PROCEDURE: Primary low transverse section. SURGEON: Dolores Bo MD HYDRODYNAMICIST: RICHARD Flores ANESTHESIA: Epidural. COMPLICATIONS: None. ESTIMATED BLOOD LOSS: 600 mL. DESCRIPTION OF PROCEDURE: Patient was taken to the operating room where epidural anesthesia was found to be adequate. Patient was then prepped and draped in proper sterile fashion. A Pfannenstiel skin incision was made and carried down to the underlying layer of fascia. The fascia was incised in the midline and extended laterally. The superior aspect of the fascial incision was then grasped with a Vince clamp, elevated, and the rectus muscles dissected off bluntly. The rectus muscle was then in the midline. The peritoneum identified and entered sharply with the Metzenbaum scissors. The peritoneal incision was then grasped with a pickup and entered sharply with the Metzenbaum scissors. The vesicouterine peritoneum was then grasped with a pickup and entered sharply with the Metzenbaum scissors, and this incision was extended laterally and a bladder flap created digitally. The bladder blade was inserted, and the lower uterine segment was incised using a 10 blade. This incision was extended laterally. Upon extending the incision, the 1 arm was found at the incision. This arm was then placed back inside. Attempt to find the head was undertaken. The head was really below. Several attempts were made to bring the head at the incision level. After several attempts, the head was finally delivered, and the nose and mouth were suctioned and the cord clamped and cut. The infant was handed to the waiting raw stock drier tender. The placenta was removed manually. The uterus exteriorized and cleared of all clots and debris. The uterine incision was repaired using 0 Biosyn in a running, locked fashion. A 2nd layer of the same suture was used as a means to provide excellent hemostasis. Then the pelvis was then completely irrigated. The uterus was returned to the abdomen. The peritoneal incision was repaired using 2-0 Biosyn, and the fascia was reapproximated using 0 Vicryl in a running fashion, and the skin was closed in a subcuticular fashion using 3-0 Vicryl. Patient tolerated procedure well. Patient was then taken to PACU in stable condition. PATHOLOGY: Placenta. Teetee [id number]
[2019-02-24 12:06] VITALS: BP 103/61; PULSE 77; TEMP 97.9
--- NOTE | 2019-02-24 17:18 | PATH ---
Surgical Pathology Report Patient Name: KADE TIPTON [facility]. Rec. #: [id number] /Age/Gender: 1990 (Age: 28) / F Account: [id number] Location: [facility] OBS/ROVING HAULER Taken: 02/20/2019 Received: 02/23/2019 Reported: 02/24/2019 Physicians: Dolores Bo M.D. Specimen(s) Received PLACENTA Clinical History Primary Final Diagnosis PLACENTA: THIRD TRIMESTER PLACENTA. TRIVASCULAR CORD. MEMBRANES WITH NO DIAGNOSTIC ABNORMALITIES. Electronically Signed Alessandra Malcolm M.D. Gross Description The specimen is received fresh labeled placenta and is a 443 gram, 21.0 x 13.5 x 2.6 cm. placenta with attached membranes and umbilical cord. The attached membranes are irvin, translucent with focal opacities and insert marginally. The umbilical cord measures 15 cm. in length and averages 1 cm. in diameter. The cord inserts eccentrically, 2 cm. to the nearest margin. No true knots or strictures are identified. Cut surface of the umbilical cord reveals 3 vessels. The surface is peterson-blue with minimal fibrin deposition and appropriate caliber vessels. The maternal surface is red-brown with focal defects. Sectioning reveals red-brown, spongy parenchyma. No lesions are identified. Escrow Agent sections are submitted in three cassettes as follows: 1- membrane rolls and umbilical cord; 2-3- full thickness sections of placenta. /02/23/2019 saudi/02/23/2019
== END 2019-02-24 14:30 | disposition home or self-care (01) | DRG 540 ==
LOC: JLDR 01:30 → J3W 15:00
PROVIDERS: ADMIT Obstetrics & Gynecology; ATTEND Obstetrics & Gynecology
PROC: 10D00Z1 Extraction of Products of Conception, Low, Open Approach (ICD-10-PCS; principal; 2019-02-20)
PROC: 3E0P7VZ Introduction of Hormone into Female Reproductive, Via Natural or Artificial Opening (ICD-10-PCS; 2019-02-20)
DX: O62.0 Primary inadequate contractions (principal); O77.0 Labor and delivery complicated by meconium in amniotic fluid; O99.02 Anemia complicating childbirth; Z3A.39 39 weeks gestation of pregnancy; Z37.0 Single live birth
CPT/HCPCS: 36415; 36600; 80048; 82803; 85025; 85610; 85730; 86593; 86850; 86900; 86901; 87389; 88307-TC; 90686; 90715

== ENCOUNTER 2020-04-26 13:46 | Emergency (ER) | payer OTHER ==
[2020-04-26 13:55] VITALS: TEMP 98.2; BMI 33.0
[2020-04-26 15:33] LABS: WHITE BLOOD COUNT 8.2 K/mm3 (4.0-10.0)
[2020-04-26 15:34] LABS: BASO % 0.6 % (0-2.0); EOS % 0.2 % (0-4.5); HEMATOCRIT 36.8 % (32.4-45.2); HEMOGLOBIN 12.1 GM/dL (10.7-15.3); LYMPH % 14.4 % (8-40); MCH 31.9 pg (25.7-33.7); MEAN CELL VOLUME 96.7 fl (80-96); MEAN PLT VOLUME 8.3 fl (7.5-11.1); NEUT % 78.8 % (42.8-82.8); PLATELET COUNT 285 K/MM3 (134-434); RDW 12.6 % (11.6-15.6)
[2020-04-26] MEDS ORDERED: ACETAMINOPHEN 325 MG TABLET (FP) PO ONE (15:40)
[2020-04-26 15:54] LABS: BLOOD UREA NITROGEN 7.6 mg/dL (7-18); CALCIUM 8.8 mg/dL (8.5-10.1)
[2020-04-26 15:55] LABS: ALBUMIN 3.9 g/dl (3.4-5.0)
[2020-04-26 15:58] LABS: CREATININE 0.7 mg/dL (0.55-1.3)
[2020-04-26 15:59] LABS: BILIRUBIN,TOTAL 0.7 mg/dL (0.2-1); TOT PROT 7.2 g/dl (6.4-8.2)
[2020-04-26] MEDS ORDERED: ACETAMINOPHEN 325 MG TABLET (FP) ONE (16:02)
[2020-04-26 16:17] LABS: URINE APPEARANCE CLEAR; URINE BILIRUBIN NEGATIVE (NEGATIVE); URINE COLOR YELLOW; URINE GLUCOSE (UA) NEGATIVE (NEGATIVE); URINE KETONE TRACE (NEGATIVE); URINE LEUK ESTERASE NEGATIVE (NEGATIVE); URINE NITRITE NEGATIVE (NEGATIVE); URINE PROTEIN NEGATIVE (NEGATIVE); URINE UROBILINOGEN 0.2 mg/dL (0.2-1.0)
[2020-04-26] MEDS ORDERED: LACTATED RINGERS SOLUTION 1000 ML INFUS.BAG IV ONE (16:19)
[2020-04-26 19:08] VITALS: BP 118/70; PULSE 71
== END 2020-04-26 19:08 | disposition home or self-care (01) ==
LOC: JER 13:46
DX: O26.891 Other specified pregnancy related conditions, first trimester (principal); R55 Syncope and collapse; R10.30 Lower abdominal pain, unspecified; Z3A.01 Less than 8 weeks gestation of pregnancy
CPT/HCPCS: 36415; 76830-TC; 80053; 81003; 84702; 85025; 87086; 93005; 93010; 99285-25

== ENCOUNTER 2020-12-06 05:45 | Inpatient (IN) | payer OTHER ==
[2020-12-06] MEDS ORDERED: CITRIC ACID/SODIUM CITRATE 30 ML UNIT-DOSE CUP PO ONE (06:00)
[2020-12-06] MEDS ORDERED: ELECTROLYTE-148 SOLN 500 ML IV ONE (06:00)
[2020-12-06] MEDS ORDERED: ELECTROLYTE-148 SOLN 1,000 ML IV SCH ×2 (06:30→07:45)
[2020-12-06 06:32] VITALS: BMI 31.1
[2020-12-06] MEDS ORDERED: ONDANSETRON 4 MG/2 ML VIAL ONE (07:30)
[2020-12-06] MEDS ORDERED: METHYLERGONOVINE MALEATE 0.2 MG/1 ML AMP IM PRN (07:32)
[2020-12-06] MEDS ORDERED: WITCH HAZEL 50% (TUCKS) 40 PAD/JAR PAD TP PRN (07:32)
[2020-12-06] MEDS ORDERED: BENZOCAINE 20% 57 GM BOTTLE TP PRN (07:32)
[2020-12-06] MEDS ORDERED: BENZOCAINE 28 GM HEMORRHOIDAL OINTMENT TP PRN (07:32)
[2020-12-06] MEDS ORDERED: OXYTOCIN 20 UNITS in 0.9% NS 20 UNIT/1,000 ML INFUS.BAG IV SCH (07:45)
[2020-12-06] MEDS ORDERED: morphine SULFATE/PF 0.5 MG/ML (2cc Syringe - QUVA) ONE (07:55)
[2020-12-06] MEDS ORDERED: OXYTOCIN 20 UNITS in 0.9% NS 20 UNIT/1,000 ML INFUS.BAG IV ONE (09:20)
[2020-12-06 09:35] LABS: CORD HCO3 23.5 mmHg (20-29); CORD PCO2 47.9 mmHg (30-78); CORD pH 7.308 (7.14-7.44)
[2020-12-06 09:38] LABS: CORD HCO3 21.7 mmHg (20-29); CORD PCO2 52.1 mmHg (30-78); CORD pH 7.238 (7.14-7.44)
[2020-12-06] MEDS: PRENATAL VITAMINS W/ FOLIC ACID TABLET (FP) PO SCH (10:00)
[2020-12-06] MEDS: IBUPROFEN 800 MG/8 ML IJ IVPB PRN ×2 (11:10→21:09)
[2020-12-06] MEDS: FERROUS SO4 325 MG TABLET (FP) PO SCH (18:38)
[2020-12-07] MEDS: IBUPROFEN 600 MG TABLET (FP) PO PRN ×4 (03:22→20:25)
[2020-12-07] MEDS: SIMETHICONE 80 MG TAB.CHEW (FP) PO PRN ×3 (03:23→20:25)
[2020-12-07] MEDS ORDERED: SENNOSIDES/DOCUSATE COMBO (SENNA PLUS) TABLET (UD) PO PRN (04:00)
[2020-12-07] MEDS ORDERED: BISACODYL 10 MG SUPP.RECT RC PRN (07:32)
[2020-12-07] MEDS ORDERED: oxyCODONE HCL 5 MG TABLET PO PRN ×2 (07:32)
[2020-12-07] MEDS: ACETAMINOPHEN 325 MG TABLET (FP) PO PRN ×3 (08:41→20:25)
[2020-12-07] MEDS: FERROUS SO4 325 MG TABLET (FP) PO SCH ×2 (08:41→17:39)
[2020-12-07 08:58] LABS: BASO % 0.4 % (0-2.0); EOS % 0.8 % (0-4.5); HEMATOCRIT 31.7 % (32.4-45.2); HEMOGLOBIN 10.6 GM/dL (10.7-15.3); LYMPH % 13.2 % (8-40); MCH 30.6 pg (25.7-33.7); MCHC 33.4 g/dl (32.0-36.0); MEAN CELL VOLUME 91.4 fl (80-96); MEAN PLT VOLUME 8.8 fl (7.5-11.1); MONO % 4.7 % (3.8-10.2); NEUT % 80.9 % (42.8-82.8); PLATELET COUNT 220 10^3/uL (134-434); RBC 3.46 M/mm3 (3.60-5.2); RDW 14.2 % (11.6-15.6); WHITE BLOOD COUNT 8.4 K/mm3 (4.0-10.0)
[2020-12-07] MEDS: PRENATAL VITAMINS W/ FOLIC ACID TABLET (FP) PO SCH (10:23)
[2020-12-08] MEDS: ACETAMINOPHEN 325 MG TABLET (FP) PO PRN ×4 (05:03→20:17)
[2020-12-08] MEDS: IBUPROFEN 600 MG TABLET (FP) PO PRN ×3 (05:04→17:20)
[2020-12-08] MEDS: PRENATAL VITAMINS W/ FOLIC ACID TABLET (FP) PO SCH (09:15)
[2020-12-08] MEDS: FERROUS SO4 325 MG TABLET (FP) PO SCH ×2 (09:15→17:19)
[2020-12-08] MEDS: SIMETHICONE 80 MG TAB.CHEW (FP) PO PRN ×2 (09:15→20:17)
[2020-12-09] MEDS: IBUPROFEN 600 MG TABLET (FP) PO PRN (06:06)
[2020-12-09] MEDS: ACETAMINOPHEN 325 MG TABLET (FP) PO PRN (06:07)
[2020-12-09] MEDS: SIMETHICONE 80 MG TAB.CHEW (FP) PO PRN (06:07)
[2020-12-09] MEDS: FERROUS SO4 325 MG TABLET (FP) PO SCH (08:27)
[2020-12-09 10:11] VITALS: BP 97/62; PULSE 75; TEMP 98.5
[2020-12-09] MEDS: PRENATAL VITAMINS W/ FOLIC ACID TABLET (FP) PO SCH (10:27)
[2020-12-09 14:03] LABS: BASO % 0.6 % (0-2.0); EOS % 1.8 % (0-4.5); HEMATOCRIT 30.4 % (32.4-45.2); HEMOGLOBIN 10.2 GM/dL (10.7-15.3); LYMPH % 12.8 % (8-40); MCH 30.7 pg (25.7-33.7); MCHC 33.6 g/dl (32.0-36.0); MEAN CELL VOLUME 91.4 fl (80-96); MEAN PLT VOLUME 9.2 fl (7.5-11.1); MONO % 4.9 % (3.8-10.2); NEUT % 79.9 % (42.8-82.8); PLATELET COUNT 255 10^3/uL (134-434); RBC 3.32 M/mm3 (3.60-5.2); RDW 14.6 % (11.6-15.6); WHITE BLOOD COUNT 7.7 K/mm3 (4.0-10.0)
== END 2020-12-09 15:15 | disposition home or self-care (01) | DRG 540 ==
LOC: MERGE 05:45 → JLDR 05:45 → J3W 10:45
PROVIDERS: ADMIT Obstetrics & Gynecology; ATTEND Obstetrics & Gynecology
PROC: 10D00Z1 Extraction of Products of Conception, Low, Open Approach (ICD-10-PCS; principal; 2020-12-06)
DX: O34.219 Maternal care for unspecified type scar from previous cesarean delivery (principal); Z3A.39 39 weeks gestation of pregnancy; Z37.0 Single live birth
CPT/HCPCS: 36415; 36600; 82803; 85025; 88307-TC

== ENCOUNTER 2021-01-01 12:42 | Emergency (ER) | payer OTHER ==
[2021-01-01 13:00] VITALS: BMI 24.5
[2021-01-01] MEDS ORDERED: KETOROLAC TROMETHAMINE 30 MG/1 ML VIAL IVPUSH ONE (14:40)
[2021-01-01] MEDS ORDERED: SODIUM CHLORIDE 0.9% 500 ML INFUS.BAG IV ONE (14:41)
[2021-01-01] MEDS ORDERED: KETOROLAC TROMETHAMINE 30 MG/1 ML VIAL ONE (15:10)
[2021-01-01 15:36] LABS: EOS % 2.5 % (0-4.5); HEMATOCRIT 35.4 % (32.4-45.2); HEMOGLOBIN 11.7 GM/dL (10.7-15.3); LYMPH % 21.8 % (8-40); MCH 29.5 pg (25.7-33.7); MEAN CELL VOLUME 89.4 fl (80-96); MEAN PLT VOLUME 8.2 fl (7.5-11.1); MONO % 5.9 % (3.8-10.2); NEUT % 68.8 % (42.8-82.8); PLATELET COUNT 307 10^3/uL (134-434); RBC 3.96 M/mm3 (3.60-5.2); RDW 14.2 % (11.6-15.6); WHITE BLOOD COUNT 7.2 K/mm3 (4.0-10.0)
[2021-01-01 15:53] LABS: CALCIUM 8.8 mg/dL (8.5-10.1)
[2021-01-01 15:55] LABS: ALBUMIN 3.6 g/dl (3.4-5.0); BLOOD UREA NITROGEN 11.5 mg/dL (7-18)
[2021-01-01 15:57] LABS: CREATININE 0.7 mg/dL (0.55-1.3)
[2021-01-01 15:58] LABS: BILIRUBIN,TOTAL 0.3 mg/dL (0.2-1); TOT PROT 8.3 g/dl (6.4-8.2)
[2021-01-01] MEDS ORDERED: CEFAZOLIN 1 GM in DEXTROSE 5%-WATER - 50 ML IVPB ONE (17:43)
[2021-01-01] MEDS ORDERED: CEFAZOLIN 1 GM/D5W 1 GM/50 ML BAG ONE (17:56)
[2021-01-01 18:09] VITALS: BP 105/66; PULSE 53; TEMP 98.4
== END 2021-01-01 18:52 | disposition home or self-care (01) ==
LOC: JER 12:42
PROC: 3E033GC Introduction of Other Therapeutic Substance into Peripheral Vein, Percutaneous Approach (ICD-10-PCS; principal; 2021-01-01)
DX: T81.40XA Infection following a procedure, unspecified, initial encounter (principal)
CPT/HCPCS: 36415; 74177-TC; 80053; 85025; 99285-25; Q9967

== ENCOUNTER 2022-02-24 02:19 | Emergency (ER) | payer OTHER ==
[2022-02-24 02:29] VITALS: RESP 18; BMI 24.5
[2022-02-24] MEDS ORDERED: ONDANSETRON 4 MG/2 ML VIAL IVPUSH ONE (02:44)
[2022-02-24] MEDS ORDERED: PANTOPRAZOLE SODIUM 40 MG VIAL IVPUSH ONE (02:44)
[2022-02-24] MEDS ORDERED: SODIUM CHLORIDE 1,000 ML IV STA (02:48)
[2022-02-24] MEDS ORDERED: ACETAMINOPHEN 1000 MG/100 ML BAG IVPB ONE (02:48)
[2022-02-24] MEDS ORDERED: ACETAMINOPHEN INJECTION 100 ML IVPB ONE (03:24)
[2022-02-24] MEDS ORDERED: ONDANSETRON 4 MG/2 ML VIAL ONE (03:24)
[2022-02-24 03:42] LABS: BASO % 0.4 % (0-2.0); EOS % 0.7 % (0-4.5); HEMATOCRIT 39.3 % (32.4-45.2); HEMOGLOBIN 13.1 GM/dL (10.7-15.3); LYMPH % 5.9 % (8-40); MCH 31.5 pg (25.7-33.7); MCHC 33.4 g/dl (32.0-36.0); MEAN CELL VOLUME 94.3 fl (80-96); MEAN PLT VOLUME 8.3 fl (7.5-11.1); MONO % 7.2 % (3.8-10.2); NEUT % 85.8 % (42.8-82.8); PLATELET COUNT 248 10^3/uL (134-434); RBC 4.17 M/mm3 (3.60-5.2); RDW 12.4 % (11.6-15.6); WHITE BLOOD COUNT 11.8 K/mm3 (4.0-10.0)
[2022-02-24] MEDS ORDERED: PANTOPRAZOLE SODIUM 80 MG/200 ML BAG IVPB ONE (03:58)
[2022-02-24 03:59] LABS: ALBUMIN 3.8 g/dl (3.4-5.0); BLOOD UREA NITROGEN 14.4 mg/dL (7-18); CALCIUM 8.6 mg/dL (8.5-10.1)
[2022-02-24 04:02] LABS: CREATININE 0.8 mg/dL (0.55-1.3)
[2022-02-24 04:04] LABS: BILIRUBIN,TOTAL 0.5 mg/dL (0.2-1)
[2022-02-24 06:46] VITALS: BP 93/56; PULSE 60; TEMP 98
[2022-02-24 08:17] LABS: EPI CELLS 4 /uL (0-25.1); HYALINE CASTS 0 /uL (0-3.1); PH,URINE 6.5 (5.0-8.0); URINE APPEARANCE CLEAR; URINE BACTERIA 12 /uL (0-1359); URINE BILIRUBIN NEGATIVE (NEGATIVE); URINE COLOR YELLOW; URINE GLUCOSE (UA) NEGATIVE (NEGATIVE); URINE KETONE NEGATIVE (NEGATIVE); URINE LEUK ESTERASE NEGATIVE (NEGATIVE); URINE NITRITE NEGATIVE (NEGATIVE); URINE PROTEIN NEGATIVE (NEGATIVE); URINE RBC 1 /uL (0-23.9); URINE UROBILINOGEN 0.2 mg/dL (0.2-1.0); URINE WBC 1 /uL (0-25.8)
== END 2022-02-24 09:30 | disposition home or self-care (01) ==
LOC: JER 02:19
PROC: 3E033GC Introduction of Other Therapeutic Substance into Peripheral Vein, Percutaneous Approach (ICD-10-PCS; principal; 2022-02-24)
DX: R11.2 Nausea with vomiting, unspecified (principal)
CPT/HCPCS: 0241U-QW; 36415; 74177-TC; 80053; 81003; 83690; 84484; 84703; 85025; 86850; 86900; 86901; 87086; 93005; 93010; 99285-25; Q9967

== ENCOUNTER 2022-12-31 22:18 | Emergency (ER) | payer OTHER ==
[2022-12-31 22:27] VITALS: BP 116/78; PULSE 79; RESP 18; TEMP 98.1; BMI 24.5
[2023-01-01] MEDS ORDERED: ACETAMINOPHEN 500 MG TABLET (FP) PO ONE (00:20)
[2023-01-01] MEDS ORDERED: ACETAMINOPHEN 1000 MG/100 ML BAG IVPB ONE (01:11)
[2023-01-01] MEDS ORDERED: FAMOTIDINE 20 MG/50 ML IVPB 20 MG/50 ML MG IVPB ONE (01:11)
[2023-01-01] MEDS ORDERED: SODIUM CHLORIDE 0.9% 500 ML INFUS.BAG IV ONE (01:11)
[2023-01-01] MEDS ORDERED: ONDANSETRON 4 MG/2 ML VIAL IVPB ONE (01:12)
[2023-01-01] MEDS ORDERED: FAMOTIDINE 10 MG/ML VIAL IVPB ONE (01:16)
[2023-01-01] MEDS ORDERED: ACETAMINOPHEN INJECTION 100 ML IVPB ONE (01:16)
[2023-01-01] MEDS ORDERED: ONDANSETRON 4 MG/2 ML VIAL ONE (01:16)
[2023-01-01 01:25] LABS: BASO % 0.7 % (0-2.0); EOS % 1.2 % (0-4.5); HEMATOCRIT 34.8 % (32.4-45.2); HEMOGLOBIN 11.9 GM/dL (10.7-15.3); LYMPH % 26.7 % (8-40); MCH 32.3 pg (25.7-33.7); MCHC 34.3 g/dl (32.0-36.0); MEAN CELL VOLUME 94.2 fl (80-96); MEAN PLT VOLUME 8.6 fl (7.5-11.1); MONO % 6.9 % (3.8-10.2); NEUT % 64.5 % (42.8-82.8); PLATELET COUNT 233 10^3/uL (134-434); RBC 3.69 M/mm3 (3.60-5.2); WHITE BLOOD COUNT 6.2 K/mm3 (4.0-10.0)
[2023-01-01 01:54] LABS: CHLORIDE 109 mmol/L (98-107); SODIUM 141 mmol/L (136-145)
[2023-01-01 01:56] LABS: ALBUMIN 3.6 g/dl (3.4-5.0); ANION GAP 7 MMOL/L (8-16); BLOOD UREA NITROGEN 10.3 mg/dL (7-18); CALCIUM 8.6 mg/dL (8.5-10.1); CO2 26 mmol/L (21-32); GLUCOSE,RANDOM 87 mg/dL (74-106); MAGNESIUM 1.9 mg/dL (1.8-2.4)
[2023-01-01 01:59] LABS: CREATININE 0.7 mg/dL (0.55-1.3); PHOSPHOROUS 3.7 mg/dL (2.5-4.9); SGOT/AST 14 U/L (15-37); SGPT/ALT 12 U/L (13-61)
[2023-01-01 02:01] LABS: BILIRUBIN,TOTAL 0.4 mg/dL (0.2-1)
[2023-01-01 02:02] LABS: ALK PHOS 53 U/L (45-117)
[2023-01-01 06:32] LABS: PH,URINE 5.5 (5.0-8.0); URINE APPEARANCE CLEAR; URINE BILIRUBIN NEGATIVE (NEGATIVE); URINE COLOR YELLOW; URINE GLUCOSE (UA) NEGATIVE (NEGATIVE); URINE KETONE NEGATIVE (NEGATIVE); URINE LEUK ESTERASE NEGATIVE (NEGATIVE); URINE NITRITE NEGATIVE (NEGATIVE); URINE PROTEIN TRACE (NEGATIVE); URINE UROBILINOGEN 0.2 mg/dL (0.2-1.0)
== END 2023-01-01 06:54 | disposition home or self-care (01) ==
LOC: JER 22:18
PROC: 3E033GC Introduction of Other Therapeutic Substance into Peripheral Vein, Percutaneous Approach (ICD-10-PCS; principal; 2023-01-01)
PROC: 3E033NZ Introduction of Analgesics, Hypnotics, Sedatives into Peripheral Vein, Percutaneous Approach (ICD-10-PCS; 2023-01-01)
PROC: 3E033GC Introduction of Other Therapeutic Substance into Peripheral Vein, Percutaneous Approach (ICD-10-PCS; 2023-01-01)
DX: K62.89 Other specified diseases of anus and rectum (principal); R11.2 Nausea with vomiting, unspecified; R10.31 Right lower quadrant pain; R10.11 Right upper quadrant pain; K64.4 Residual hemorrhoidal skin tags; Z20.822 Contact with and (suspected) exposure to COVID-19
CPT/HCPCS: 0241U-QW; 36415; 74177-TC; 80053; 81003; 82272; 83735; 84100; 84443; 84702; 85025; 86850; 86900; 86901; 87086; 99285-25; Q9967

== ENCOUNTER 2023-02-05 03:53 | Day surgery (SDC) | payer OTHER ==
[2023-02-01 18:28] VITALS: BMI 21.6
[2023-02-05] MEDS ORDERED: BUPIVACAINE HCL/PF 0.25% (2.5MG/ML) 10 ML VIAL ONE (10:44)
[2023-02-05] MEDS ORDERED: PROPOFOL 20 ML ONE ×2 (10:47→11:49)
[2023-02-05] MEDS ORDERED: MIDAZOLAM HCL 2 MG/2 ML SINGLE DOSE VIAL ONE (10:47)
[2023-02-05] MEDS ORDERED: DEXAMETHASONE SOD PHOSPHATE 4 MG/1 ML VIAL ONE (11:19)
[2023-02-05] MEDS ORDERED: ONDANSETRON 4 MG/2 ML VIAL ONE (11:19)
[2023-02-05] MEDS ORDERED: BUPIVACAINE HCL/PF 0.5% (5 MG/ML) 30 ML VIAL IJ ONE (12:00)
[2023-02-05] MEDS ORDERED: BUPIVACAINE HCL/PF 0.25% (2.5MG/ML) 10 ML VIAL IJ ONE (12:00)
[2023-02-05] MEDS ORDERED: SODIUM CHLORIDE 0.9% P/F 10 ML VIAL IJ ONE (12:11)
[2023-02-05 14:07] VITALS: RESP 18
[2023-02-05 17:18] VITALS: BP 100/62; PULSE 78; TEMP 97.6
== END 2023-02-05 17:10 | disposition home or self-care (01) ==
LOC: JASU-SURG 03:53
PROVIDERS: ATTEND Surgery
PROC: 06BY0ZC Excision of Hemorrhoidal Plexus, Open Approach (ICD-10-PCS; principal; 2023-02-05 10:30)
DX: K64.8 Other hemorrhoids (principal)
CPT/HCPCS: 81025; 88304-TC; 88341-TC; 88342-TC; 94760

== ENCOUNTER 2023-02-11 16:59 | Emergency (ER) | payer OTHER ==
[2023-02-11 17:11] VITALS: BP 104/63; PULSE 75; RESP 18; TEMP 98.4; BMI 21.6
[2023-02-11] MEDS ORDERED: KETOROLAC TROMETHAMINE 60 MG/2 ML VIAL IM ONE (18:14)
[2023-02-11] MEDS ORDERED: KETOROLAC TROMETHAMINE 60 MG/2 ML VIAL ONE (18:16)
[2023-02-11] MEDS ORDERED: CEFTRIAXONE 1,000 MG in DEXTROSE 5%-WATER - 50 ML IVPB ONE (18:47)
[2023-02-11] MEDS ORDERED: CEFTRIAXONE 1 GM/50 ML BAG ONE (19:10)
[2023-02-11 19:17] LABS: PH,URINE 7.5 (5.0-8.0); URINE APPEARANCE CLEAR; URINE BILIRUBIN NEGATIVE (NEGATIVE); URINE COLOR YELLOW; URINE GLUCOSE (UA) NEGATIVE (NEGATIVE); URINE KETONE NEGATIVE (NEGATIVE); URINE LEUK ESTERASE NEGATIVE (NEGATIVE); URINE NITRITE NEGATIVE (NEGATIVE); URINE PROTEIN NEGATIVE (NEGATIVE); URINE UROBILINOGEN 0.2 mg/dL (0.2-1.0)
[2023-02-11 19:18] LABS: BASO % 0.6 % (0-2.0); EOS % 1.2 % (0-4.5); HEMATOCRIT 35.7 % (32.4-45.2); HEMOGLOBIN 12.1 GM/dL (10.7-15.3); MCH 32.2 pg (25.7-33.7); MCHC 33.8 g/dl (32.0-36.0); MEAN CELL VOLUME 95.2 fl (80-96); MEAN PLT VOLUME 8.1 fl (7.5-11.1); MONO % 9.8 % (3.8-10.2); NEUT % 73.4 % (42.8-82.8); PLATELET COUNT 252 10^3/uL (134-434); RBC 3.74 M/mm3 (3.60-5.2); RDW 12.3 % (11.6-15.6); WHITE BLOOD COUNT 7.2 K/mm3 (4.0-10.0)
[2023-02-11 19:37] LABS: POTASSIUM 4.4 mmol/L (3.5-5.1)
[2023-02-11 19:41] LABS: CALCIUM 8.6 mg/dL (8.5-10.1)
[2023-02-11 19:42] LABS: ALBUMIN 3.7 g/dl (3.4-5.0); BLOOD UREA NITROGEN 7.9 mg/dL (7-18)
[2023-02-11 19:45] LABS: CREATININE 0.8 mg/dL (0.55-1.3)
[2023-02-11 19:47] LABS: BILIRUBIN,TOTAL 0.5 mg/dL (0.2-1); TOT PROT 7.3 g/dl (6.4-8.2)
== END 2023-02-11 22:32 | disposition home or self-care (01) ==
LOC: JERFT 16:59 → JER 16:59 → JERFT 22:32
PROC: 3E03329 Introduction of Other Anti-infective into Peripheral Vein, Percutaneous Approach (ICD-10-PCS; principal; 2023-02-11)
PROC: 3E0233Z Introduction of Anti-inflammatory into Muscle, Percutaneous Approach (ICD-10-PCS; 2023-02-11)
DX: K62.89 Other specified diseases of anus and rectum (principal); R19.8 Other specified symptoms and signs involving the digestive system and abdomen; R50.9 Fever, unspecified; L03.315 Cellulitis of perineum
CPT/HCPCS: 36415; 72192-TC; 80053; 81003; 83605; 84703; 85025; 87086; 99284-25

== ENCOUNTER 2023-10-22 01:59 | Emergency (ER) | payer OTHER ==
[2023-10-22 02:05] VITALS: BMI 20.5
[2023-10-22] MEDS ORDERED: ACETAMINOPHEN INJECTION 100 ML IVPB ONE (02:40)
[2023-10-22] MEDS ORDERED: FAMOTIDINE 10 MG/ML VIAL IVPB ONE (02:41)
[2023-10-22] MEDS ORDERED: MAG HYDROX/AL HYDROX/SIMETH 30 ML UNIT-DOSE CUP ONE (02:41)
[2023-10-22] MEDS: SODIUM CHLORIDE 0.9% 500 ML INFUS.BAG IV ONE (03:12)
[2023-10-22] MEDS: MAG HYDROX/AL HYDROX/SIMETH 30 ML UNIT-DOSE CUP PO ONE (03:12)
[2023-10-22] MEDS: FAMOTIDINE 20 MG/50 ML IVPB 20 MG/50 ML MG IVPB ONE (03:12)
[2023-10-22] MEDS: ACETAMINOPHEN 1000 MG/100 ML BAG IVPB ONE (03:12)
[2023-10-22 03:19] LABS: HEMATOCRIT 38.6 % (32.4-45.2); HEMOGLOBIN 13.1 GM/dL (10.7-15.3); MCH 32.5 pg (25.7-33.7); MCHC 33.9 g/dl (32.0-36.0); MEAN CELL VOLUME 95.9 fl (80-96); MEAN PLT VOLUME 8.7 fl (7.5-11.1); PLATELET COUNT 222 10^3/uL (134-434); RBC 4.02 M/mm3 (3.60-5.2); RDW 12.8 % (11.6-15.6); WHITE BLOOD COUNT 6.3 K/mm3 (4.0-10.0)
[2023-10-22 03:20] LABS: EPI CELLS 26 /uL (0-25.1); HYALINE CASTS 0 /uL (0-3.1); URINE BACTERIA 163 /uL (0-1359); URINE BILIRUBIN NEGATIVE (NEGATIVE); URINE COLOR YELLOW; URINE GLUCOSE (UA) NEGATIVE (NEGATIVE); URINE KETONE NEGATIVE (NEGATIVE); URINE LEUK ESTERASE TRACE (NEGATIVE); URINE NITRITE NEGATIVE (NEGATIVE); URINE PROTEIN NEGATIVE (NEGATIVE); URINE RBC 3 /uL (0-23.9); URINE WBC 4 /uL (0-25.8)
[2023-10-22 03:25] LABS: INR 1.07 (0.83-1.09); PROTHROMBIN TIME (PATIENT) 12.1 SEC (9.7-13.0)
[2023-10-22 03:28] LABS: ACTIVATED PTT 26.9 SECONDS (25.2-36.5)
[2023-10-22 03:36] LABS: CHLORIDE 104 mmol/L (98-107); SODIUM 135 mmol/L (136-145)
[2023-10-22 03:38] LABS: CALCIUM 9.2 mg/dL (8.5-10.1)
[2023-10-22 03:39] LABS: ALBUMIN 3.9 g/dl (3.4-5.0); BLOOD UREA NITROGEN 19.1 mg/dL (7-18); CO2 25 mmol/L (21-32); GLUCOSE,RANDOM 96 mg/dL (74-106)
[2023-10-22 03:42] LABS: CREATININE 0.8 mg/dL (0.55-1.3); SGOT/AST 192 U/L (15-37)
[2023-10-22 03:44] LABS: BILIRUBIN,TOTAL 0.6 mg/dL (0.2-1); TOT PROT 7.9 g/dl (6.4-8.2)
[2023-10-22 03:45] LABS: ALK PHOS 59 U/L (45-117); ANION GAP 5 mmol/L (4-13); SGPT/ALT 103 U/L (13-61)
[2023-10-22 06:07] VITALS: BP 110/68; PULSE 65; RESP 12; TEMP 98.3
[2023-10-22 06:49] LABS: ANISOCYTOSIS 1+; MACROCYTOSIS 1+
[2023-10-24 09:48] LABS: URINE APPEARANCE CLEAR
== END 2023-10-22 06:20 | disposition home or self-care (01) ==
LOC: JER 01:59
PROC: 3E033GC Introduction of Other Therapeutic Substance into Peripheral Vein, Percutaneous Approach (ICD-10-PCS; principal; 2023-10-22)
PROC: 3E033NZ Introduction of Analgesics, Hypnotics, Sedatives into Peripheral Vein, Percutaneous Approach (ICD-10-PCS; 2023-10-22)
DX: R10.13 Epigastric pain (principal); R11.0 Nausea; R10.11 Right upper quadrant pain; Z20.822 Contact with and (suspected) exposure to COVID-19
CPT/HCPCS: 0241U-QW; 36415; 71046-TC-FY; 74177-TC; 80053; 81003; 83690; 83735; 84484; 84703; 85025; 85610; 85730; 87086; 93005; 93010; 96365; 96375; 99285-25; J0131; Q9967

== ENCOUNTER 2023-10-28 17:20 | Emergency (ER) | payer OTHER ==
[2023-10-28 17:42] VITALS: BMI 21.9
[2023-10-28] MEDS ORDERED: KETOROLAC TROMETHAMINE 30 MG/1 ML VIAL ONE (19:46)
[2023-10-28] MEDS: KETOROLAC TROMETHAMINE 30 MG/1 ML VIAL IVPUSH ONE (19:49)
[2023-10-28 19:57] LABS: BASO % 0.8 % (0-2.0); EOS % 1.7 % (0-4.5); HEMATOCRIT 41.3 % (32.4-45.2); HEMOGLOBIN 13.8 GM/dL (10.7-15.3); MCH 32.5 pg (25.7-33.7); MCHC 33.5 g/dl (32.0-36.0); MEAN CELL VOLUME 96.9 fl (80-96); MEAN PLT VOLUME 7.8 fl (7.5-11.1); MONO % 6.4 % (3.8-10.2); NEUT % 62.1 % (42.8-82.8); PLATELET COUNT 354 10^3/uL (134-434); RBC 4.26 M/mm3 (3.60-5.2); RDW 12.6 % (11.6-15.6); WHITE BLOOD COUNT 7.7 K/mm3 (4.0-10.0)
[2023-10-28 20:17] LABS: CHLORIDE 104 mmol/L (98-107); POTASSIUM 4.5 mmol/L (3.5-5.1); SODIUM 135 mmol/L (136-145)
[2023-10-28 20:20] LABS: CALCIUM 9.2 mg/dL (8.5-10.1)
[2023-10-28 20:21] LABS: ALBUMIN 4.4 g/dl (3.4-5.0); ANION GAP 7 mmol/L (4-13); BLOOD UREA NITROGEN 11.7 mg/dL (7-18); CO2 24 mmol/L (21-32)
[2023-10-28 20:24] LABS: CREATININE 0.8 mg/dL (0.55-1.3); SGOT/AST 26 U/L (15-37); SGPT/ALT 40 U/L (13-61)
[2023-10-28 20:26] LABS: BILIRUBIN,TOTAL 0.8 mg/dL (0.2-1)
[2023-10-28 20:27] LABS: ALK PHOS 56 U/L (45-117)
[2023-10-28 20:30] LABS: GLUCOSE,RANDOM 82 mg/dL (74-106)
[2023-10-28 20:50] LABS: ERYTHROCYTE SEDIMENTATION RATE 11 mm/hr (0-20)
[2023-10-28 21:30] VITALS: BP 107/63; PULSE 86; RESP 18; TEMP 99.4
== END 2023-10-28 22:25 | disposition home or self-care (01) ==
LOC: JERFT 17:20
PROC: 3E0333Z Introduction of Anti-inflammatory into Peripheral Vein, Percutaneous Approach (ICD-10-PCS; principal; 2023-10-28)
DX: M54.2 Cervicalgia (principal); R07.0 Pain in throat
CPT/HCPCS: 36415; 70491-TC; 80053; 84703; 85025; 85651; 86140; 86618; 87651; 96374; 99285-25; Q9967

== ENCOUNTER 2023-11-20 18:48 | Emergency (ER) | payer OTHER ==
[2023-11-20 19:00] VITALS: BP 97/66; PULSE 71; RESP 18; TEMP 98.8; BMI 22.1
[2023-11-20 19:31] LABS: URINE APPEARANCE CLEAR; URINE BILIRUBIN NEGATIVE (NEGATIVE); URINE COLOR YELLOW; URINE GLUCOSE (UA) NEGATIVE (NEGATIVE); URINE KETONE NEGATIVE (NEGATIVE); URINE LEUK ESTERASE NEGATIVE (NEGATIVE); URINE NITRITE NEGATIVE (NEGATIVE); URINE PROTEIN NEGATIVE (NEGATIVE); URINE UROBILINOGEN 0.2 mg/dL (0.2-1.0)
[2023-11-20 19:35] LABS: HCG,QUALITATIVE URINE Negative
[2023-11-20] MEDS ORDERED: metroNIDAZOLE 250 MG TABLET ONE (20:53)
[2023-11-20] MEDS ORDERED: DOXYCYCLINE HYCLATE 100 MG CAPSULE PO ONE (20:53)
[2023-11-20] MEDS: metroNIDAZOLE 250 MG TABLET PO ONE (21:07)
[2023-11-20] MEDS: DOXYCYCLINE HYCLATE 100 MG CAPSULE PO ONE (21:08)
== END 2023-11-20 21:08 | disposition home or self-care (01) ==
LOC: JER 18:48
DX: N73.0 Acute parametritis and pelvic cellulitis (principal); M54.50 Low back pain, unspecified; R10.30 Lower abdominal pain, unspecified; R35.0 Frequency of micturition
CPT/HCPCS: 36415; 81003; 84703; 87070; 87086; 87205; 87491; 87591; 87661; 99284-25

== ENCOUNTER 2024-02-04 18:17 | Emergency (ER) | payer OTHER ==
[2024-02-04 18:28] VITALS: BP 115/78; PULSE 60; RESP 20; TEMP 98.1; BMI 25.4
[2024-02-04] MEDS ORDERED: AMOX TR/POT CLAV 875MG/125MG TABLETS (FP) ONE (19:41)
[2024-02-04] MEDS ORDERED: IBUPROFEN 600 MG TABLET (FP) PO ONE (19:41)
[2024-02-04] MEDS: AMOX TR/POT CLAV 875MG/125MG TABLETS (FP) PO ONE (19:42)
[2024-02-04] MEDS: IBUPROFEN 600 MG TABLET (FP) PO ONE (19:42)
== END 2024-02-04 19:54 | disposition home or self-care (01) ==
LOC: JERFT 18:17
DX: H92.02 Otalgia, left ear (principal); H66.92 Otitis media, unspecified, left ear; H60.92 Unspecified otitis externa, left ear; J02.9 Acute pharyngitis, unspecified
CPT/HCPCS: 99283-25